=== PATIENT | female | born 1980 | race Caucasian/White ===

== ENCOUNTER 2020-07-15 16:19 | Outpatient (CLI) | payer OTHER | END 2020-07-15 16:20 | disposition home or self-care (01) | LOC: COV 16:19 | PROVIDERS: ATTEND Family Medicine | DX: Z20.822 Contact with and (suspected) exposure to COVID-19 (principal) ==

== ENCOUNTER 2023-09-18 09:46 | Outpatient (CLI) | payer MEDICAID ==
--- NOTE | 2023-09-18 10:28 | Sleep Patient Instructions ---
Sleep Center Visit Summary - Patient Visit Information Reason for Visit: Initial consult for evaluation of sleep disordered breathing and other sleep issues. - Patient Instructions Instructions Attached: Sleep Study, Sleep Study Home Monitor Additional Instructions: You will be completing a sleep study, either an in-lab polysomnography (PSG) or home sleep study (HST). You will follow-up in the sleep care office after the sleep study is completed to hear the results and talk about therapy, if needed. You will be called by our office staff to schedule this appointment, but you may contact us with any questions. - Clinic Information Contact: [facility] [address] [place] [id number] [email or web address] T: [phone]
[2023-09-18 10:30] VITALS: BP 141/67; O2SAT 99
--- NOTE | 2023-09-18 10:30 | SLEEP CARE CONSULTATION ---
Information from patient questionnaire entered by Marleny Castelan. I have reviewed and concur with the information entered by Marleny Castelan. This document represents the service I personally performed and the decisions made by me, Lupis Cespedes ARNP. 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 denies: Choking, Gasping for air Toss, Turn, or Twitch while sleeping: Yes (occasionally) Recalls having dreams: Yes Usually gets out of bed at: 0430-530AM Feels refreshed in the morning: No Morning headache: Yes (5-6 days a week; usually gone by early afternoon) Sleepy or fatigued during the day: Yes Ever fallen asleep while driving: Yes (drowsy driving; no accidents) Takes day naps: Yes (couple times a month) Dreams during day naps: Yes Prior sleep studies: No Additional HPI information: I had the pleasure of seeing JULI GAMA today regarding the possibility of her having a sleep disorder. Her current complaints are daytime sleepiness, fatigue and unrefreshed sleep. She was discussing with PCP that she is always tired. She says it so often that her is getting irritated about it. She says she is so tired that it is "painful". She never wakes up feeling rested. She say she used to work over nights and used to struggle with falling asleep. She now uses a "show" on her phone and will fall asleep quickly. If she wakes up in the middle of the night it can take 1-2 hours to fall asleep. - Parasomnia Symptoms Ever been unable to move upon waking from sleep: No Walks in sleep: No Talks in sleep: Yes Ever acted out dreams in sleep: Yes (not often; occasionally will jerk awake and is dreaming) Ever felt weak in the knees when startled or emotional: No Bothered by creepy, crawly, restless sensations in legs: No (both) Problems with memory or concentration: Yes Subjective Initial Crawford Sleepiness Scale score: 11 (09/18/23) Past Medical History Past Medical History: reports: Arthritis, Depression, Attention deficit Social History The patient's occupation is a [employer]. Patient is and lives in [place]. Have you smoked in the past 12 months: No Alcohol use: Yes Alcohol amount and frequency: 1-2 DRINKS 2-3TIMES A YR Caffeine use: Yes Caffeine amount and frequency: ALL OF THE COFFEE ALL OF THE TIME Family History Family history of sleep disordered breathing: Yes (brother with night terrors, sleep walking) Family Hx Sleep Apnea: Father: Snoring Allergies and Home Medications Known drug allergies: No Drug allergies reviewed: Yes Home medication list reviewed: Yes (as listed) Review of Systems Weight gain over past 5 years: 50-60 Cardiovascular: denies: high blood pressure Gastrointestinal: denies: heartburn Neurological: reports: headaches. denies: head trauma Psychiatric: reports: Attention Deficit Hyperactivity, depression Ear/Nose/Throat: reports: wisdom teeth removed (one removed). denies: injury to nose, tonsillectomy Musculoskeletal: reports: joint pain, back pain Physical Exam Vital signs obtained and entered by: MARLENY Rodriguez MA Blood Pressure: 141/67 (LEFT ARM) Cuff size: long Heart Rate: 98 O2 Saturation: 99 Height: 5 ft 8 in Weight: 258 lb 9.6 oz Body Mass Index: 39.3 BMI Classification: Obese Neck circumference: 17.75 Nostrils: patent to airflow Mouth and throat: narrow oropharynx Soft palate: long Hard palate: normal Uvula: normal Uvula visualization: 25% Mallampati Class III Tongue: enlarged in size with teeth serrato on lateral edges Tonsils: 1+ Neck: normal w/o lymphadenopathy or thyromegaly Heart: regular rate and rhythm Lungs: clear bilaterally Impression and Plan 1. Suspected Obstructive Sleep Apnea-Hypopnea Syndrome, as suggested by a history of morning headache, unrefreshed sleep, cognitive impairment, and excessive daytime sleepiness. Narrow oropharynx and obesity are common predisposing factors for obstructive sleep apnea-hypopnea syndrome. I recommend proceeding to polysomnography to confirm the diagnosis and to assess severity. If the patient has significant sleep disordered breathing, a manual CPAP titration study will also be performed to find the optimal treatment pressure. I informed the patient of what the sleep studies involve and after some discussion, obtained agreement to proceed. The pathophysiology of obstructive sleep apnea-hypopnea syndrome was discussed with the patient and health risks of cardiovascular and cerebrovascular disease if not treated. 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 Patient agreed to plan. * Schedule polysomnography. * Avoid long distance driving or driving when feeling sleepy. * Avoid alcohol, sedative and muscle relaxant around bedtime. * Attempt to lose weight. * Review instructions provided by trained office staff on how to prepare for the sleep study. * Return for follow-up after sleep study completed. Counseling Topics: Weight loss health impact Follow up with Sleep Care in: other (after study to review results) Plan: PSG/HST Visit Type: In Office Time Spent with Patient (minutes): 30 Provider Statement: I spent 100% of the Face to Face Visit with the patient with greater than 50% spent counseling the patient and coordination of care.
== END 2023-09-18 09:47 | disposition home or self-care (01) ==
LOC: SC 09:46
PROVIDERS: ATTEND Nurse Practitioner Family
DX: R51.9 Headache, unspecified (principal); G47.8 Other sleep disorders; R41.89 Other symptoms and signs involving cognitive functions and awareness; G47.10 Hypersomnia, unspecified
CPT/HCPCS: 99203; 99212

== ENCOUNTER 2023-10-02 08:59 | Outpatient (CLI) | payer MEDICAID | END 2023-10-02 09:00 | disposition home or self-care (01) | LOC: SC 08:59 | PROVIDERS: ATTEND Nurse Practitioner Family | DX: R53.83 Other fatigue (principal); R51.9 Headache, unspecified; E66.9 Obesity, unspecified; G47.8 Other sleep disorders | CPT/HCPCS: 95806 ==